=== PATIENT | male | born 1940 | race Caucasian/White ===

== ENCOUNTER 2018-05-24 15:31 | Emergency (ER) | payer OTHER ==
[~2018-05-24] VITALS: Ht 165.1 cm; Wt 89.8 kg
[2018-05-24 15:34] VITALS: Ht 165.1 cm; Wt 89.8 kg
[2018-05-24 18:58] VITALS: BP 147/74
== END 2018-05-24 18:58 | disposition home or self-care (01) ==
LOC: ED 15:31
DX: S80.812A Abrasion, left lower leg, initial encounter (principal); M17.11 Unilateral primary osteoarthritis, right knee; I10 Essential (primary) hypertension; E11.9 Type 2 diabetes mellitus without complications; W19.XXXA Unspecified fall, initial encounter; Y93.89 Activity, other specified; Y92.89 Other specified places as the place of occurrence of the external cause; Y99.8 Other external cause status
CPT/HCPCS: J1885

== ENCOUNTER 2019-07-19 07:45 | Day surgery (SDC) | payer OTHER, MEDICARE ==
[~2019-07-19] VITALS: Ht 165.1 cm; Wt 97.5 kg
[2019-07-19 08:39] VITALS: BP 152/78
[2019-07-19 11:51] VITALS: BP 147/80
== END 2019-07-19 10:30 | disposition home or self-care (01) ==
LOC: GI 07:45 → OR 10:30 → GI 10:30
DX: D12.2 Benign neoplasm of ascending colon (principal); N40.0 Benign prostatic hyperplasia without lower urinary tract symptoms; E11.9 Type 2 diabetes mellitus without complications; F41.9 Anxiety disorder, unspecified; Z86.010 Personal history of colon polyps; Z98.890 Other specified postprocedural states; Z79.82 Long term (current) use of aspirin; Z79.899 Other long term (current) drug therapy; Z85.828 Personal history of other malignant neoplasm of skin; Z96.641 Presence of right artificial hip joint; Z79.84 Long term (current) use of oral hypoglycemic drugs
CPT/HCPCS: 45378; J1200; J1610; J2250; J2310; J3010; J3490